=== PATIENT | female | born 1980 ===

== ENCOUNTER 2024-11-30 06:31 | Day surgery (SDC) | payer BC, SELFPAY | END 2024-11-30 10:52 | disposition home or self-care (01) | LOC: GI 06:31 | PROVIDERS: ATTENDING PHYSICIAN Internal Medicine Gastroenterology | DX: R12 Heartburn (principal); K44.9 Diaphragmatic hernia without obstruction or gangrene; K90.0 Celiac disease; K31.89 Other diseases of stomach and duodenum | CPT/HCPCS: 43239; 88305; 88342 ==